=== PATIENT | male | born 1995 | race Caucasian/White ===

== ENCOUNTER 2022-01-08 02:00 | Outpatient (CLI) | payer MEDICAID | END 2022-01-08 02:01 | disposition critical access hospital (66) | LOC: EMS 02:00 | DX: R11.2 Nausea with vomiting, unspecified (principal); R10.13 Epigastric pain | CPT/HCPCS: A0425; A0427 ==

== ENCOUNTER 2022-01-08 02:20 | Emergency (ER) | payer MEDICAID ==
[2022-01-08] MEDS ORDERED: DROPERIDOL 5 MG/2 ML VIAL IVP STA (02:41)
[2022-01-08] MEDS ORDERED: SODIUM CHLORIDE 0.9% 1,000 ML IV STA (02:41)
[2022-01-08 02:53] LABS: BASOPHILS % (AUTO) 0.2 %; EOSINOPHILS # (AUTO) 0.1 10^3/uL (0.0-0.7); EOSINOPHILS % (AUTO) 0.6 %; HCT - HEMATOCRIT 41.7 % (42.0-52.0); HGB - HEMOGLOBIN 14.1 g/dL (14.0-18.0); LYMPHOCYTES # (AUTO) 1.3 10^3/uL (1.5-3.5); LYMPHOCYTES % (AUTO) 10.5 %; MEAN CORPUSCULAR HEMOGLOBIN 31.4 pg (27.0-31.0); MEAN CORPUSCULAR HGB CONC 33.8 g/dL (32.0-36.0); MEAN CORPUSCULAR VOLUME 92.9 fL (80.0-94.0); MEAN PLATELET VOLUME 10.7 fL (7.4-11.4); MONOCYTES # (AUTO) 0.7 10^3/uL (0.0-1.0); MONOCYTES % (AUTO) 5.2 %; NEUTROPHILS # (AUTO) 10.4 10^3/uL (1.5-6.6); NEUTROPHILS % (AUTO) 83.2 %; PLT - PLATELET COUNT 183 10^3/uL (130-450); RED BLOOD COUNT 4.49 10^6/uL (4.70-6.10); RED CELL DISTRIBUTION WIDTH 13.1 % (12.0-15.0); WHITE BLOOD COUNT 12.6 x10^3/uL (4.8-10.8)
[2022-01-08 03:06] LABS: ALBUMIN 4.6 g/dL (3.2-5.5); ALBUMIN/GLOBULIN RATIO 2.2 (1.0-2.2); BILIRUBIN,TOTAL 0.5 mg/dL (0.2-1.0); CALCIUM 8.8 mg/dL (8.5-10.3); CREATININE 0.6 mg/dL (0.6-1.2); TOTAL PROTEIN 6.7 g/dL (6.7-8.2)
[2022-01-08] MEDS ORDERED: LORazepam 2 MG/ML VIAL IVP STA (03:13)
--- NOTE | 2022-01-08 03:18 | ED Physician Documentation ---
PD HPI NVD - Stated complaint Stated Complaint: N/V, EPIGASTRIC PAIN - Chief complaint Chief Complaint: Abd Pain - History obtained from History obtained from: Patient - History of Present Illness Timing - duration: Hours (4-5) - Additonal information Additional information: Patient is a 26-year-old male presenting for evaluation of nausea and vomiting that has been present for the last 4 to 5 hours. He reports associated anxiety. He has a history of these episodes. He says that he has a condition causing cysts in his abdomen and had a cyst removed in 2013 as well as a hernia repair. Since that time he has had chronic abdominal issues and is usually seen at the [facility]. [place]. His symptoms started this evening and he has had multiple episodes of emesis - When asked what he vomited, patient states "everything". Patient denies blood in emesis. He denies diarrhea or significant abdominal pain. He reports that he usually gets nausea and anxiety medications when he goes to the emergency department.He does admit to drinking 2 beers today as well as regular cannabis abuse Including today. He does not believe his symptoms are related to cannabis use Has been told that it cannot be by medical staff manager in the past.He denies sick contacts. Review of Systems Constitutional: denies: Fever Ears: denies: Reviewed and negative Throat: denies: Sore throat Cardiac: denies: Chest pain / pressure Respiratory: denies: Dyspnea GI: reports: Nausea, Vomiting. denies: Abdominal Pain : denies: Dysuria Skin: denies: Rash Musculoskeletal: denies: Back pain Neurologic: denies: Headache Psychiatric: reports: Anxiety PD PAST MEDICAL HISTORY - Present Medications Home Medications: Ambulatory Orders Medication Instructions Recorded Confirmed No Known Home Medications 01/08/22 01/08/22 - Allergies Allergies/Adverse Reactions: Allergies Allergy/AdvReac Type Severity Reaction Status Date / Time amphetamine [From Adderall] Allergy Hallucinati Verified 01/08/22 02:26 ons dextroamphetamine Allergy Hallucinati Verified 01/08/22 02:26 [From Adderall] ons PD ED PE NORMAL - General General: Alert and oriented X 3, No acute distress, Well developed/nourished - HEENT HEENT: Atraumatic, Moist mucous membranes - Neck Neck: Supple, no meningeal sign - Cardiac Cardiac: RRR, No murmur, Strong equal pulses - Respiratory Respiratory: No respiratory distress, Clear bilaterally - Abdomen Abdomen: Normal bowel sounds, Soft, Non tender, Non distended, Other (Well- healed midline incision) - Derm Derm: Warm and dry - Extremities Extremities: No edema - Neuro Neuro: Normal speech - Psych Psych: Other (Anxious appearing) Results - Vitals Vitals: Vital Signs - 24 hr 01/08/22 01/08/22 01/08/22 02:26 02:30 02:51 Temperature 36.3 C L Heart Rate 62 79 Respiratory 18 20 Rate Blood Pressure 143/87 H O2 Saturation 100 99 01/08/22 01/08/22 03:33 04:57 Temperature 36.6 C Heart Rate 57 L 66 Respiratory 18 18 Rate Blood Pressure 139/58 H 123/76 O2 Saturation 96 98 Oxygen O2 Source Room air - EKG (time done) 0334 Rate: Rate (enter#) (77) Rhythm: NSR [place]: Normal Intervals: No: Prolonged QT (QTC 421) Ischemia: No: ST elevation c/w ischemia Compare to prior EKG: Old EKG unavailable - Labs Labs: Laboratory Tests 01/08/22 01/08/22 02:48 02:48 WBC 12.6 H RBC 4.49 L Hgb 14.1 Hct 41.7 L MCV 92.9 MCH 31.4 H MCHC 33.8 RDW 13.1 Plt Count 183 MPV 10.7 Neut # (Auto) 10.4 H Lymph # (Auto) 1.3 L [place] # (Auto) 0.7 Eos # (Auto) 0.1 Baso # (Auto) 0.0 Absolute Nucleated RBC 0.00 Nucleated RBC % 0.0 Sodium 141 Potassium 4.0 Chloride 108 Carbon Dioxide 23 Anion Gap 10.0 BUN 11 Creatinine 0.6 Estimated GFR (MDRD) 160 Glucose 111 H Calcium 8.8 Total Bilirubin 0.5 AST 32 ALT 25 Alkaline Phosphatase 47 Total Protein 6.7 Albumin 4.6 Globulin 2.1 Albumin/Globulin Ratio 2.2 Lipase 36 PD MEDICAL DECISION MAKING - ED course Complexity details: reviewed results, re-evaluated patient ED course: Patient with nausea and vomiting. Vital signs stable. Abdominal exam is relatively benign. Patient does report having a history of abdominal surgeries and a condition causing cysts. Labs without significant findings. CT scan with presacral cyst and constipation. Patient feeling better after droperidol and Ativan And IV fluids. He is no longer vomiting. Able to tolerate p.o. and ambulatory. Counseled regarding his CT results and recommended abstaining from marijuana. Patient is advised on return precautions and comfortable with plan for discharge. Departure - Departure Disposition: 01 Home, Self Care Clinical Impression: Cannabis abuse Nausea & vomiting Qualifiers: Vomiting type: unspecified Qualified Code(s): R11.2 - Nausea with vomiting, unspecified Constipation Qualifiers: Constipation type: unspecified constipation type Qualified Code(s): K59.00 - Constipation, unspecified Condition: Stable Instructions: ED Constipation, ED Nausea Vomiting Comments: You were evaluated for nausea and vomiting. Your labs were overall reassuring your abdominal CT did not show any new findings. You do have a presacral cyst. The radiologist also noted a moderate amount of constipation. Please use MiraLAX daily For the next several days to help with this. Please follow-up with your primary care doctor. If you have any worsening symptoms please con meter installer and remover return to the emergency department. Discharge Date/Time: 01/08/22 04:57
[2022-01-08 04:58] VITALS: BP 123/76
--- NOTE | 2022-01-08 08:23 | CT Report ---
PROCEDURE: Abdomen/Pelvis WO INDICATIONS: n/v/pain TECHNIQUE: Noncontrast 5 mm thick sections acquired from the diaphragms to the symphysis. 5 mm coronal and sagi ttal reformats were then performed. For radiation dose reduction, the following was used: automated exposure control, adjustment of mA and/or kV according to patient size. COMPARISON: None. FINDINGS: Image quality: Excellent. ABDOMEN: Lung bases: Lung bases are clear. Heart size is normal. Solid organs: Liver and spleen are normal in size. Gallbladder Pancreas is normal in contours. No adrenal nodules. Kidneys are normal in size, without hydronephrosis or nephrolithiasis. Peritoneum and bowel: Unenhanced bowel loops demonstrate normal wall thickness and caliber. No free fluid or air. Small hiatal hernia. Nodes and vessels: No retroperitoneal or mesenteric adenopathy by size criteria. Aorta and inferior vena cava are normal in caliber. Cystic lesion in the sacral region measuring 4.8 x 4.2 cm. 3.9 x 1 .6 cm tubular structure with layering hyperdense fluid anteriorly. Miscellaneous: Small fat-containing hernia. PELVIS: Genitourinary: Bladder wall thickness is normal. Miscellaneous: No inguinal hernias or adenopathy. Bones: No suspicious bony lesions. No vertebral body compression fractures. IMPRESSION: Presacral, likely cystic lesions described above of uncertain etiology. If there is prior imaging, co mparison may be made to assess stability. These could also be better evaluated on MRI of the pelvis. Otherwise no acute intra-abdominal pathology. Reviewed by: Omkar Caal MD on 01/08/2022 8:22 AM PDT Approved by: Omkar Caal MD on 01/08/2022 8:22 AM PDT Station ID: [id number]
== END 2022-01-08 04:57 | disposition home or self-care (01) ==
LOC: ED 02:20
DX: R11.2 Nausea with vomiting, unspecified (principal); F12.10 Cannabis abuse, uncomplicated; K59.00 Constipation, unspecified
CPT/HCPCS: 36415; 74176; 80053; 83690; 85025; 93005; 96374; 96375; 99283; 99284; J2060

== ENCOUNTER 2022-01-08 06:26 | Outpatient (CLI) | payer MEDICAID | END 2022-01-08 06:27 | disposition EMS.NT | LOC: EMS 06:26 | DX: R42 Dizziness and giddiness (principal); R25.1 Tremor, unspecified ==